=== PATIENT | female | born 2000 | race Caucasian/White ===

== ENCOUNTER → 2019-12-13 | Outpatient (CLI) | payer BC | LOC: COL.LAB 21:06 | DX: L03.031 Cellulitis of right toe (principal) ==

== ENCOUNTER 2020-12-18 11:22 | Outpatient (CLI) | payer BC ==
[~2020-12-18] VITALS: Ht 177.8 cm; Wt 55.8 kg
[2020-12-18 11:35] VITALS: BP 118/80; PULSE 96; TEMP 98
[2020-12-18 12:31] LABS: HEMOGLOBIN 13.6 g/dl (12.5-16.0); MEAN CELL VOLUME 90 fl (80.0-100.0); MEAN CORPUSCULAR HEMOGLOBIN 32 pg (27.0-31.0); MEAN CORPUSCULAR HGB CONC 35 g/dl (33.0-37.0); MEAN PLATELET VOLUME 10.5 fl (7.4-10.4); PLATELET COUNT 233 K/mm3 (130-400); RED BLOOD COUNT 4.32 M/mm3 (4.10-5.30); REDCELL DISTRIBUTION WIDTH-CV 12.2 % (11.5-14.5)
[2020-12-18 12:39] LABS: ALBUMIN 3.8 gm/dL (3.5-5.0); BILIRUBIN,TOTAL 0.4 mg/dL (0.2-1.2); CALCIUM 9.3 mg/dL (8.4-10.2); CREATININE, serum 0.71 mg/dL (0.57-1.11); POTASSIUM 3.4 mmol/L (3.5-4.5); TOTAL PROTEIN 6.5 gm/dL (6.2-8.1)
[2020-12-18 12:43] LABS: BAND 14 % (0-10); EOSINOPHIL 2 % (0-4); LYMPHOCYTE 33 % (20.0-51.0); NEUTROPHILS 39 % (42.0-75.2); PLATELET ESTIMATE NORMAL (NORMAL)
== END 2020-12-18 15:04 ==
LOC: EUO 11:22
PROVIDERS: Internal Medicine Infectious Disease
DX: K52.9 Noninfective gastroenteritis and colitis, unspecified (principal)
CPT/HCPCS: J7030

== ENCOUNTER 2022-03-31 16:28 | Emergency (ER) | payer BC ==
[~2022-03-31] VITALS: Ht 177.8 cm; Wt 59.1 kg
[2022-03-31 16:34] VITALS: TEMP 97.6
[2022-03-31 18:37] VITALS: BP 137/86; PULSE 77
== END 2022-03-31 18:15 | disposition home or self-care (01) ==
LOC: COL.ER 16:28
DX: S06.0XAA Concussion with loss of consciousness status unknown, initial encounter (principal); Z28.310 Unvaccinated for COVID-19; V00.321A Fall from snow-skis, initial encounter; Y93.23 Activity, snow (alpine) (downhill) skiing, snowboarding, sledding, tobogganing and snow tubing